=== PATIENT | male | born 1975 | race African-American/Black ===

== ENCOUNTER 2022-06-20 15:53 | Emergency (ER) | payer OTHER ==
[~2022-06-20 15:53] MED LIST: Iopamidol-370 76% 500 ML 1 ML ONE
[2022-06-20] MEDS ORDERED: Ondansetron PF 4 MG/2 ML Vial ONE (16:22)
[2022-06-20] MEDS ORDERED: Morphine 4 MG/ML VIAL ONE (16:22)
[2022-06-20] MEDS ORDERED: Ketorolac Tromethamine 30 MG/ML VIAL ONE (16:29)
[2022-06-20 16:47] LABS: #Basophils 0.1 thou/uL (0.0-0.2); #Eosinphils 0.1 thou/uL (0.0-0.7); #Lymphocytes 2.3 thou/uL (1.20-3.40); #Monocytes 0.9 thou/uL (0.11-0.59); #Neutrophils 5.1 thou/uL (1.40-6.50); %Basophils 0.8 % (0.0-1.0); %Eosinophils 0.9 % (0.0-10.0); %Lymphocytes 27.2 % (21.0-51.0); %Monocytes 10.2 % (0.0-10.0); %Neutrophils 60.8 % (42.0-75.0); Hemoglobin 12.7 g/dL (14.0-18.0); Mean Corpuscular HGB CONC 32.1 g/dL (32.0-36.0); Mean Corpuscular Hemoglobin 31.1 pg (27.0-31.0); Mean Corpuscular Volume 96.8 fl (78.0-98.0); Mean Platelet Volume 10.1 fL (7.4-10.4); Platelet Count 188 thou/uL (130-400); RBC Distribution Width 19.6 % (11.5-14.5); Red Blood Cell (RBC) Count 4.09 mill/uL (4.70-6.10); White Blood Cell (WBC) Count 8.4 thou/uL (4.8-10.8)
[2022-06-20 17:00] LABS: ALT (SGPT) 19 U/L (8-55); AST (SGOT) 26 U/L (5-34); Albumin 3.1 g/dL (3.5-5.0); Alkaline Phosphatase 82 U/L (40-110); Anion Gap 11 mmol/L (10-20); BUN (Urea Nitrogen) 24 mg/dL (8.9-20.6); Bilirubin, Total 0.5 mg/dL (0.2-1.2); Calc. Creatinine Clearance 0 mL/min (70-130); Calcium 9.5 mg/dL (7.8-10.44); Carbon Dioxide 28 mmol/L (22-29); Chloride 101 mmol/L (98-107); Estimated GFR 50; Glucose 86 mg/dL (70-105); Potassium 4.4 mmol/L (3.5-5.1); Protein, Total 9.1 g/dL (6.0-8.3); Sodium 136 mmol/L (136-145)
[2022-06-20 18:25] LABS: Bilirubin Negative (Negative); Blood, Urine Negative (Negative); Clarity Clear (Clear); Glucose, Urine (Dipstick) Greater than 1000 mg/dL (Negative); Ketone, Urine Negative (Negative); Leukocyte Negative Leu/uL (Negative); Nitrite Negative (Negative); Protein, Urine (Dipstick) Negative (Neg-Trace); Specific Gravity, Urine 1.019 (1.002-1.036); Urobilinogen Normal mg/dL (Less than 2); pH, Urine 6.5 (5.0-9.0)
== END 2022-06-20 18:44 | disposition home or self-care (01) ==
LOC: ERS 15:53
DX: K59.00 Constipation, unspecified (principal); R10.31 Right lower quadrant pain; E11.9 Type 2 diabetes mellitus without complications; I10 Essential (primary) hypertension; E78.00 Pure hypercholesterolemia, unspecified; Z79.899 Other long term (current) drug therapy
CPT/HCPCS: 36415; 74177; 80053; 81003; 83605; 84484; 85025; 87040; 87086; 93005; 96361; 96374; 96375; J1885; J2270; J2405; Q9967

== ENCOUNTER 2022-11-12 11:58 | Outpatient (CLI) | payer OTHER | END 2022-11-12 11:59 | disposition home or self-care (01) | LOC: RAD 11:58 | PROVIDERS: ATTEND Family Medicine | DX: M54.2 Cervicalgia (principal); M47.812 Spondylosis without myelopathy or radiculopathy, cervical region | CPT/HCPCS: 72050 ==

== ENCOUNTER 2023-02-05 07:48 | Outpatient (CLI) | payer OTHER ==
[2023-02-05 08:43] LABS: #Eosinphils 0.1 10x3/uL (0.0-0.5); #Monocytes 0.5 10x3/uL (0.0-1.1); #Neutrophils 2.9 10x3/uL (1.5-8.4); %Basophils 0.8 % (0.0-2.0); %Monocytes 9.5 % (0.0-10.0); %Neutrophils 55.5 % (40.0-75.0); Hemoglobin 11.5 g/dL (13.5-17.5); Mean Corpuscular HGB CONC 31.1 g/dL (32.0-36.0); Mean Corpuscular Hemoglobin 28.8 pg (27.0-33.0); Mean Corpuscular Volume 92.5 fl (81.2-95.1); Platelet Count 212 10x3/uL (150-450); RBC Distribution Width 20.6 % (11.5-14.5); White Blood Cell (WBC) Count 5.2 10x3/uL (3.5-10.5)
[2023-02-05 09:08] LABS: ALT (SGPT) 20 U/L (8-55); AST (SGOT) 26 U/L (5-34); Albumin 3.2 g/dL (3.5-5.0); Alkaline Phosphatase 89 U/L (40-110); Anion Gap 13 mmol/L (10-20); BUN (Urea Nitrogen) 20 mg/dL (8.9-20.6); Bilirubin, Total 0.4 mg/dL (0.2-1.2); Calc. Creatinine Clearance 0 mL/min (70-130); Calcium 8.6 mg/dL (7.8-10.44); Carbon Dioxide 26 mmol/L (22-29); Chloride 102 mmol/L (98-107); Estimated GFR 55; Globulin 5.1 g/dL (2.4-3.5); Glucose 91 mg/dL (70-105); Potassium 4.4 mmol/L (3.5-5.1); Protein, Total 8.3 g/dL (6.0-8.3); Sodium 137 mmol/L (136-145)
== END 2023-02-05 07:49 | disposition home or self-care (01) ==
LOC: LABBT 07:48
PROVIDERS: ATTEND Surgery
DX: Z01.818 Encounter for other preprocedural examination (principal); L72.3 Sebaceous cyst
CPT/HCPCS: 80053; 85025; 93005; 93010

== ENCOUNTER 2023-11-06 17:00 | Emergency (ER) | payer OTHER ==
[2023-11-07 12:17] LABS: SARS-CoV-2 N1 Positive; SARS-CoV-2 N2 Positive; SARS-CoV-2 RNAse P1 Positive
== END 2023-11-06 18:52 | disposition home or self-care (01) ==
LOC: ERS 17:00
DX: M54.41 Lumbago with sciatica, right side (principal); M62.830 Muscle spasm of back; E11.9 Type 2 diabetes mellitus without complications; I10 Essential (primary) hypertension; E78.00 Pure hypercholesterolemia, unspecified
CPT/HCPCS: 87635; 99283

== ENCOUNTER 2024-02-08 09:19 | Outpatient (CLI) | payer OTHER | END 2024-02-08 09:20 | disposition home or self-care (01) | LOC: SJX 09:19 | PROVIDERS: ATTEND Student in an Organized Health Care Education/Training Program | DX: M47.816 Spondylosis without myelopathy or radiculopathy, lumbar region (principal); M51.36 Other intervertebral disc degeneration, lumbar region; M48.061 Spinal stenosis, lumbar region without neurogenic claudication; M47.817 Spondylosis without myelopathy or radiculopathy, lumbosacral region; M51.37 Other intervertebral disc degeneration, lumbosacral region; M48.07 Spinal stenosis, lumbosacral region | CPT/HCPCS: 72148 ==

== ENCOUNTER 2025-04-01 17:37 | Emergency (ER) | payer OTHER ==
[2025-04-01 18:13] LABS: #Basophils 0.05 10x3/uL (0.0-0.2); #Eosinophils 0.04 10x3/uL (0.0-0.7); #Monocytes 0.61 10x3/uL (0.11-0.59); #Neutrophils 3.94 10x3/uL (1.40-6.50); %Basophils 0.8 % (0.0-1.0); %Eosinophils 0.7 % (0.0-10.0); %Lymphocytes 21.5 % (21.0-51.0); %Monocytes 10.2 % (0.0-10.0); %Neutrophils 65.8 % (42.0-75.0); Hematocrit 33.4 % (42.0-52.0); Hemoglobin 10.6 g/dL (14.0-18.0); Mean Corpuscular Hemoglobin 28.8 pg (27.0-31.0); Mean Corpuscular Volume 90.8 fL (78.0-98.0); Platelet Count 189 10x3/uL (130-400); Red Blood Cell (RBC) Count 3.68 mill/uL (4.70-6.10); White Blood Cell (WBC) Count 5.99 10x3/uL (4.8-10.8)
[2025-04-01 18:38] LABS: ALT (SGPT) 18 U/L (Less than 45); AST (SGOT) 27 U/L (11-34); Albumin 2.5 g/dL (3.1-4.5); Alkaline Phosphatase 83 U/L (40-110); Anion Gap 12 mmol/L (10-20); BUN (Urea Nitrogen) 35 mg/dL (8.9-20.6); Bilirubin, Total 0.2 mg/dL (0.3-1.2); Calc. Creatinine Clearance 0 mL/min (70-130); Calcium 7.9 mg/dL (7.8-10.44); Carbon Dioxide 21 mmol/L (22-29); Chloride 102 mmol/L (98-107); Globulin 4.8 g/dL (2.4-3.5); Glucose 101 mg/dL (70-105); Potassium 4.3 mmol/L (3.5-5.1); Sodium 131 mmol/L (136-145)
[2025-04-01 18:58] LABS: CK (CPK) 146 U/L (30-200); Lipase 38 U/L (8-78)
== END 2025-04-01 19:51 | disposition home or self-care (01) ==
LOC: ERS 17:37
DX: T67.5XXA Heat exhaustion, unspecified, initial encounter (principal); R55 Syncope and collapse; N28.9 Disorder of kidney and ureter, unspecified; E11.9 Type 2 diabetes mellitus without complications; I10 Essential (primary) hypertension
CPT/HCPCS: 36415; 71045; 80053; 82550; 83605; 83690; 84484; 85025; 87040; 93005; 94760; 96360; 96361

== ENCOUNTER 2025-07-27 20:39 | Observation (INO) | payer OTHER ==
[2025-07-27 22:09] LABS: ALT (SGPT) 13 U/L (Less than 45); AST (SGOT) 26 U/L (11-34); Albumin 2.4 g/dL (3.1-4.5); Alkaline Phosphatase 80 U/L (40-110); Anion Gap 7 mmol/L (10-20); BUN (Urea Nitrogen) 39 mg/dL (8.9-20.6); Bilirubin, Total 0.2 mg/dL (0.3-1.2); Calc. Creatinine Clearance 0 mL/min (70-130); Calcium 8.4 mg/dL (7.8-10.44); Carbon Dioxide 23 mmol/L (22-29); Chloride 104 mmol/L (98-107); Globulin 4.9 g/dL (2.4-3.5); Glucose 120 mg/dL (70-105); Magnesium 1.9 mg/dL (1.6-2.6); Potassium 5.7 mmol/L (3.5-5.1); Sodium 128 mmol/L (136-145)
[2025-07-27 22:33] LABS: #Basophils 0.06 10x3/uL (0.0-0.2); #Eosinophils 0.04 10x3/uL (0.0-0.7); #Monocytes 1.13 10x3/uL (0.11-0.59); #Neutrophils 4.06 10x3/uL (1.40-6.50); %Basophils 0.8 % (0.0-1.0); %Eosinophils 0.6 % (0.0-10.0); %Lymphocytes 25.0 % (21.0-51.0); %Monocytes 15.7 % (0.0-10.0); %Neutrophils 56.5 % (42.0-75.0); Hematocrit 29.9 % (42.0-52.0); Hemoglobin 9.6 g/dL (14.0-18.0); Mean Corpuscular Hemoglobin 29.9 pg (27.0-31.0); Mean Corpuscular Volume 93.1 fL (78.0-98.0); Platelet Count 166 10x3/uL (130-400); Red Blood Cell (RBC) Count 3.21 mill/uL (4.70-6.10); White Blood Cell (WBC) Count 7.19 10x3/uL (4.8-10.8)
[2025-07-28] MEDS ORDERED: Dextrose 50% Abboject 50 ML SYRINGE SLOW IVP PRN (00:02)
[2025-07-28] MEDS ORDERED: Acetaminophen 325 MG TAB PO PRN (00:02)
[2025-07-28] MEDS ORDERED: Glucagon 1 MG/ML KIT IM PRN (00:02)
[2025-07-28] MEDS ORDERED: Sodium Polystyrene Sulfonate 15 GM (60 mL) BOT ONE (00:06)
[2025-07-28 05:38] LABS: #Basophils 0.06 10x3/uL (0.0-0.2); #Eosinophils 0.05 10x3/uL (0.0-0.7); #Monocytes 0.79 10x3/uL (0.11-0.59); #Neutrophils 5.13 10x3/uL (1.40-6.50); %Basophils 0.7 % (0.0-1.0); %Eosinophils 0.6 % (0.0-10.0); %Lymphocytes 27.7 % (21.0-51.0); %Monocytes 9.4 % (0.0-10.0); %Neutrophils 60.9 % (42.0-75.0); Hematocrit 28.2 % (42.0-52.0); Hemoglobin 9.2 g/dL (14.0-18.0); Mean Corpuscular Hemoglobin 29.5 pg (27.0-31.0); Mean Corpuscular Volume 90.4 fL (78.0-98.0); Platelet Count 158 10x3/uL (130-400); Red Blood Cell (RBC) Count 3.12 mill/uL (4.70-6.10); White Blood Cell (WBC) Count 8.42 10x3/uL (4.8-10.8)
[2025-07-28 05:57] LABS: ALT (SGPT) 14 U/L (Less than 45); AST (SGOT) 26 U/L (11-34); Albumin 2.3 g/dL (3.1-4.5); Alkaline Phosphatase 94 U/L (40-110); Anion Gap 10 mmol/L (10-20); BUN (Urea Nitrogen) 36 mg/dL (8.9-20.6); Bilirubin, Total 0.2 mg/dL (0.3-1.2); Calc. Creatinine Clearance 54 mL/min (70-130); Calcium 8.3 mg/dL (7.8-10.44); Carbon Dioxide 27 mmol/L (22-29); Chloride 103 mmol/L (98-107); Globulin 4.9 g/dL (2.4-3.5); Glucose 146 mg/dL (70-105); Potassium 4.4 mmol/L (3.5-5.1); Sodium 136 mmol/L (136-145)
[2025-07-28] MEDS ORDERED: Enoxaparin 60 MG (0.6 mL) SYRINGE ONE (08:58)
[2025-07-28] MEDS: Enoxaparin 60 MG (0.6 mL) SYRINGE SC SCH (09:05)
[2025-07-28] MEDS: Carvedilol 3.125 MG TAB PO SCH (11:46)
[2025-07-28 14:51] VITALS: BP 135/93; TEMP 98.3
[2025-07-28] MEDS ORDERED: Allopurinol 300 MG TAB PO SCH (21:00)
[2025-07-28] MEDS ORDERED: Enoxaparin 60 MG (0.6 mL) SYRINGE SC SCH (21:00)
[2025-07-28] MEDS ORDERED: Carvedilol 3.125 MG TAB PO SCH (21:00)
[2025-07-28] MEDS ORDERED: QUEtiapine 300 MG TAB PO SCH (21:00)
[2025-07-28] MEDS ORDERED: Divalproex Sodium 500 MG ER.TAB PO SCH (21:00)
== END 2025-07-28 15:02 | disposition home or self-care (01) ==
LOC: ERS 20:39 → ERHOLD 07-28 00:02
PROVIDERS: ADMIT Family Medicine; ATTEND Family Medicine
DX: I95.9 Hypotension, unspecified (principal); I12.9 Hypertensive chronic kidney disease with stage 1 through stage 4 chronic kidney disease, or unspecified chronic kidney disease; N18.9 Chronic kidney disease, unspecified; D63.1 Anemia in chronic kidney disease; E11.22 Type 2 diabetes mellitus with diabetic chronic kidney disease; E78.5 Hyperlipidemia, unspecified; E87.1 Hypo-osmolality and hyponatremia; E87.5 Hyperkalemia; Z88.8 Allergy status to other drugs, medicaments and biological substances; Z79.84 Long term (current) use of oral hypoglycemic drugs; Z79.899 Other long term (current) drug therapy
CPT/HCPCS: 36415; 36416; 80053; 83735; 84484; 85025; 93005; 94760; 96360; 96361; 96372; G0378; J1650; J7120